=== PATIENT | male | born 1945 | race American Indian/Alaskan Native ===

== ENCOUNTER 2018-11-17 11:19 | Outpatient (CLI) | payer MEDICARE, OTHER ==
--- NOTE | 2018-11-17 14:38 | Cat Scan Report ---
CT ABDOMEN AND PELVIS WITH CONTRAST HISTORY: R10.10)Upper abdominal pain, unspecified for 10 days COMPARISON: None. TECHNIQUE: Axial CT images were obtained through the abdomen and pelvis after 100 cc of Omnipaque 300 intravenously. Sagittal and coronal reformatted images. All CT scans at this location are performed using CT dose reduction for ALARA by means of automated exposure control. FINDINGS: CT ABDOMEN: Lung Bases: Clear. Liver: No significant abnormality. Biliary: Subtle tiny partially calcified gallstones are noted in the gallbladder fundus. No biliary d ilatation or gallbladder wall thickening. The CBD is unremarkable. Spleen: No significant abnormality. Unenlarged. Pancreas: No significant abnormality. Adrenals: No significant abnormality. Kidneys: No significant abnormality. 1 cm right renal cyst is noted. Lymphatics: No lymphadenopathy. Vasculature: Mild calcifications in the distal aorta. No aneurysm or stenosis. Bowel/Peritoneum: No significant abnormality. No free air. No free fluid. Normal appendix. CT PELVIS: : No significant abnormality. Osseous Structures: Moderate to severe degenerative changes are noted in the lumbar spine with probab le canal stenosis at L4-5 and L5-S1. No suspicious bony lesion or fracture. Additional Findings: None IMPRESSION: No acute inflammatory process is identified. Cholelithiasis. 1 cm right renal cyst. Degenerative changes in the lumbar spine. Signer Name: Juvenal Fang Jr, MD Signed: 11/17/2018 2:34 PM Workstation Name: [id number]
== END 2018-11-17 11:20 | disposition home or self-care (01) ==
LOC: CT 11:19
PROVIDERS: ATTEND Internal Medicine
DX: K80.20 Calculus of gallbladder without cholecystitis without obstruction (principal); N28.1 Cyst of kidney, acquired; M47.816 Spondylosis without myelopathy or radiculopathy, lumbar region
CPT/HCPCS: 74177